=== PATIENT | female | born 1995 | race African-American/Black ===

== ENCOUNTER 2018-06-05 23:58 | Emergency (ER) | payer OTHER ==
--- NOTE | 2018-06-06 00:08 | PDOC ---
History of Present Illness - General Chief Complaint: Pain, Acute Stated Complaint: HAD ONE DRINK,SMOKED HOOKAH,ACTING STRANGE Time Seen by Provider: 06/06/18 00:07 History Source: Patient Exam Limitations: No Limitations - History of Present Illness Initial Comments: 06/06/18 00:10 This is a 22-year-old female brought in by her friends for evaluation. Patient was out at a bar had had some alcohol and smoking when she began to act strangely as per the friend. Here in the emergency room patient was at her baseline and without complaints. Allergies: None Past Medical History: none Social history: Lives with family. No smoking. No alcohol. No illicit drugs. Surgical history: None General: No fevers or chills, no weakness, no weight loss HEENT: No change in vision. No sore throat,. No ear pain CardioVascular: no chest discomfort. No shortness of breath Respiratory:No cough, or wheezing. Gastrointestinal: no nausea, vomiting, diarrhea or constipation, No rectal bleeding Genitourinary: No dysuria, hematuria, or frequency Musculoskeletal: No joint or muscle pain or swelling Neurologic: No headache, vertigo, dizziness or loss of consciousness Psychiatric: nor depression Skin: No rashes or easy bruising Endocrine: no increased thirst or abnormal weight change Allergic: no skin or latex allergy All other systems reviewed and normal Exam: General: Well-nourished well-developed individual, no acute distress HEENT: Throat: Normal, tonsils normal, no erythema or exudate Neck: Supple, no meningeal signs, no lymphadenopathy Eyes::Pupils equal reactive and round, extraocular motion intact Chest: Nontender to palpation Cardiac: S1-S2 normal, regular rate and rhythm, no murmurs rubs or gallops Respiratory: Lungs clear to auscultation bilateral Abdomen: Soft, nondistended, normal bowel sounds, there is no tenderness on palpation diffusely Extremities: Warm, dry, no cyanosis, clubbing, or edema Skin: No rashes Neuro: Alert and oriented x3, CN II - XII intact, nonfocal exam with normal strength, normal sensation, normal reflexes, normal gait, Psych: Normal mood and affect Assessment and plan: This is a 22-year-old female who was brought in by her friends for evaluation because she was acting strangely after smoking or recreational drugs. Child was at her baseline in the emergency room. Patient discharged home Past History - Past Medical History Allergies/Adverse Reactions: Allergies Allergy/AdvReac Type Severity Reaction Status Date / Time No Known Allergies Allergy Verified 06/06/18 00:03 Home Medications: Ambulatory Orders Cariprazine HCl [Vraylar] 1 each PO DAILY 06/06/18 Asthma: Yes - Suicide/Smoking/Psychosocial Hx Smoking History: Never smoked Hx Alcohol Use: No Substance Use Type: None *DC/Admit/Observation/Transfer Diagnosis at time of Disposition: Recreational drug use - Discharge Dispostion Disposition: HOME Condition at time of disposition: Stable Decision to Admit order: No - Referrals - Patient Instructions Additional Instructions: Return to the emergency department immediately with ANY new, persistent or worsening symptoms. Continue any medications as previously prescribed by your physician. You should follow up with your primary doctor as soon as possible regarding today's emergency department visit. . Please make sure your doctor reviews the results of your emergency evaluation. Thank you for coming to the Emergency Department today for your care. It was a pleasure to see you today. Please note that your evaluation is INCOMPLETE until you follow-up with your doctor. - Post Discharge Activity
[2018-06-06 00:11] VITALS: BP 134/82; PULSE 97; TEMP 97.5; BMI 43.8
== END 2018-06-06 00:19 | disposition home or self-care (01) ==
LOC: FER 23:58
DX: F15.90 Other stimulant use, unspecified, uncomplicated (principal)
CPT/HCPCS: 99281-25

== ENCOUNTER 2018-12-17 18:32 | Emergency (ER) | payer OTHER | END 2018-12-17 20:39 | disposition home or self-care (01) | LOC: JER 18:32 → JERFT 20:39 ==

== ENCOUNTER 2019-03-11 16:18 | Emergency (ER) | payer OTHER ==
[2019-03-11 16:29] VITALS: BMI 40.7
--- NOTE | 2019-03-11 16:34 | PDOC ---
Rapid Medical Evaluation Time Seen by Provider: 03/11/19 16:26 Medical Evaluation: Allergies Allergy/AdvReac Type Severity Reaction Status Date / Time No Known Allergies Allergy Verified 06/06/18 00:03 03/11/19 16:26 Pt , 16 weeks , presents for evaluation of vaginal bleeding. States it started about 30 minutes ago and that it was bright red. Admits to some abdominal discomfort. Denies dysuria. Exam: Vaginal exam deferred to provider Orders: Labs, US Pt to proceed to the ER for further evaluation Discharge Disposition - Diagnosis Vaginal bleeding - Referrals - Patient Instructions - Post Discharge Activity
[2019-03-11 17:14] LABS: BASO % 0.2 % (0-2.0); EOS % 0.1 % (0-4.5); HEMATOCRIT 36.6 % (32.4-45.2); LYMPH % 16.6 % (8-40); MCH 27.1 pg (25.7-33.7); MCHC 32.7 g/dl (32.0-36.0); MEAN CELL VOLUME 83.1 fl (80-96); MEAN PLT VOLUME 8.7 fl (7.5-11.1); NEUT % 79.1 % (42.8-82.8); PLATELET COUNT 270 K/MM3 (134-434); RBC 4.41 M/mm3 (3.60-5.2); RDW 16.2 % (11.6-15.6); WHITE BLOOD COUNT 11.8 K/mm3 (4.0-10.0)
[2019-03-11 17:17] LABS: EPI CELLS 3.7 /HPF (0-5/HPF); HYALINE CASTS 7 /lpf (0-8); PH,URINE 6.5 (5.0-8.0); URINE APPEARANCE CLOUDY; URINE BACTERIA 240.9 /hpf (NEGATIVE); URINE BILIRUBIN NEGATIVE (NEGATIVE); URINE COLOR YELLOW; URINE GLUCOSE (UA) NEGATIVE (NEGATIVE); URINE KETONE 1+ (NEGATIVE); URINE LEUK ESTERASE NEGATIVE (NEGATIVE); URINE NITRITE NEGATIVE (NEGATIVE); URINE PROTEIN 1+ (NEGATIVE); URINE RBC 49 /hpf (0-4); URINE UROBILINOGEN 0.2 mg/dL (0.2-1.0); URINE WBC 2 /hpf (0-5)
[2019-03-11 17:50] LABS: ALBUMIN 3.1 g/dl (3.4-5.0); BILIRUBIN,TOTAL 0.4 mg/dL (0.2-1); BLOOD UREA NITROGEN 5.2 mg/dL (7-18); CALCIUM 9.1 mg/dL (8.5-10.1); CREATININE 0.4 mg/dL (0.55-1.3); POTASSIUM 4.1 mmol/L (3.5-5.1); TOT PROT 6.6 g/dl (6.4-8.2)
--- NOTE | 2019-03-11 17:59 | PDOC ---
History of Present Illness - General Chief Complaint: Vaginal Bleeding Stated Complaint: 16 WEEKS/ VAG BLEED Time Seen by Provider: 03/11/19 16:26 History Source: Patient Exam Limitations: No Limitations - History of Present Illness Initial Comments: 03/11/19 17:54 Stephanie Justin is an otherwise healthy 23F at 16 weeks presenting with vaginal bleeding 1 hour BEEF CATTLE GRAZIER. Patient reports she and father of her baby were having intercourse when she noticed a large amount of blood from her vagina, enough to saturate a pad. This has never happened before. Patient denies any new abdominal or back pain, nausea , vomiting, chest pain, SOB, weakness, dizziness. Has had lower back pain since , as well as a mild subcostal pain. No other medical issues, no medications taken. has been uneventful. Has OBGYN f/u, cannot remember name but gets US here. Past History - Past Medical History Allergies/Adverse Reactions: Allergies Allergy/AdvReac Type Severity Reaction Status Date / Time No Known Allergies Allergy Verified 03/11/19 16:29 Home Medications: Ambulatory Orders Cariprazine HCl [Vraylar] 1 each PO DAILY 06/06/18 No122/Iron/Folic Acid [ Multi Tablet] 1 each PO DAILY #30 tablet 12/17/18 Asthma: Yes COPD: No Psychiatric Problems: Yes (DEPRESSION) - Psycho Social/Smoking Cessation Hx Smoking History: Never smoked Have you smoked in the past 12 months: No Information on smoking cessation initiated: No 'Breaking Loose' booklet given: 06/06/18 Hx Alcohol Use: No Drug/Substance Use Hx: No Substance Use Type: None Review of Systems - Review of Systems Able to Perform ROS?: Yes Constitutional: No: Symptoms Reported HEENTM: No: Symptoms Reported Respiratory: No: Symptoms reported Cardiac (ROS): No: Symptoms Reported ABD/GI: Yes: Constipated, Abdominal cramping. No: Diarrhea, Nausea, Vomiting : No: Symptoms Reported Musculoskeletal: Yes: Back Pain Integumentary: No: Symptoms Reported Neurological: No: Symptoms reported Endocrine: No: Symptoms Reported Hematologic/Lymphatic: No: Symptoms Reported All Other Systems: Reviewed and Negative *Physical Exam - Vital Signs Last Vital Signs Temp Pulse Resp BP Pulse Ox 36.8 F L 79 20 126/66 99 03/11/19 16:26 03/11/19 16:26 03/11/19 16:26 03/11/19 16:26 03/11/19 16:26 - Physical Exam General Appearance: Yes: Nourished, Appropriately Dressed, Obese. No: Apparent Distress HEENT: positive: EOMI, GADIEL, Normal ENT Inspection, Normal Voice, Symmetrical, Pharynx Normal. negative: Scleral Icterus (R), Scleral Icterus (L), Pharyngeal Erythema, Tonsillar Exudate, Tonsillar Erythema Neck: positive: Trachea midline, Supple. negative: Tender, Rigid, Lymphadenopathy (R), Lymphadenopathy (L) Respiratory/Chest: positive: Lungs Clear, Normal Breath Sounds. negative: Chest Tender, Respiratory Distress, Accessory Muscle Use, Labored Respiration, Crackles, Rales, Rhonchi, Stridor, Wheezing Cardiovascular: positive: Regular Rhythm, Regular Rate. negative: Murmur Female Pelvic Exam: positive: normal external exam, cervical os closed, normal adnexa, other (no notable bleeding or clots, mild serosang discharge, os closed , non-tender). negative: CMT, lesions, vaginal bleeding Gastrointestinal/Abdominal: positive: Normal Bowel Sounds, Tender (subcostal tenderness bilaterally), Flat, Soft, Protuberent. negative: Organomegaly, Pulsatile Mass, Guarding, Rebound, Hernia Musculoskeletal: positive: Normal Inspection. negative: CVA Tenderness, Vertebral Tenderness Extremity: positive: Normal Capillary Refill, Normal Inspection, Normal Range of Motion, Pelvis Stable. negative: Tender Integumentary: positive: Normal Color, Dry, Warm Neurologic: positive: Fully Oriented, Alert, Normal Mood/Affect, Normal Response ED Treatment Course - LABORATORY CBC & Chemistry Diagram: 03/11/19 16:46 03/11/19 16:46 - ADDITIONAL ORDERS Additional order review: Laboratory Results 03/11/19 03/11/19 16:46 16:46 Sodium 138 Potassium 4.1 Chloride 104 Carbon Dioxide 25 Anion Gap 9 BUN 5.2 L Creatinine 0.4 L Est GFR (CKD-EPI)AfAm 170.15 Est GFR (CKD-EPI)NonAf 146.81 Random Glucose 74 Calcium 9.1 Total Bilirubin 0.4 AST 8 L ALT 19 Alkaline Phosphatase 70 Total Protein 6.6 Albumin 3.1 L Urine Color Yellow Urine Appearance Cloudy Urine pH 6.5 Ur Specific [place] 1.020 Urine Protein 1+ H Urine Glucose (UA) Negative Urine Ketones 1+ H Urine Blood 3+ H Urine Nitrite Negative Urine Bilirubin Negative Urine Urobilinogen 0.2 Ur Leukocyte Esterase Negative Urine WBC (Auto) 2 Urine RBC (Auto) 49 Urine Casts (Auto) 7 U Epithel Cells (Auto) 3.7 Urine Bacteria (Auto) 240.9 03/11/19 16:46 RBC 4.41 MCV 83.1 MCHC 32.7 RDW 16.2 H MPV 8.7 D Neutrophils % 79.1 Lymphocytes % 16.6 Monocytes % 4.0 Eosinophils % 0.1 Basophils % 0.2 Medical Decision Making - Medical Decision Making 03/11/19 17:54 Stephanie Justin is an otherwise healthy 23F at 16 weeks presenting with vaginal bleeding 1 hour BEEF CATTLE GRAZIER. Patient presentation is concerning for placental abruption vs. cervical injury during coitus vs. STD vs. UTI. Pelvic exam unremarkable, no active bleeding, abdominal pain unconcerning for acute pathology or intrabdominal bleeding. CBC CMP Beta quant UA/UC transabdominal US T/S 03/11/19 18:56 US shows live 16 week , HR 136, normal appearing. Labs remarkable for: - WBC 11.8, asymptomatic - UA +protein, +blood, +ketones, no evidence of UTI Patient evaluation shows no evidence of acute bleeding or OBGYN pathology requiring immediate intervention. Stable for discharge home with OBGYN f/u. Discharge - Discharge Information Problems reviewed: Yes Clinical Impression/Diagnosis: Vaginal bleeding Condition: Stable Disposition: HOME - Follow up/Referral Referrals: Danny Acosta [Primary Care Provider] - - Patient Discharge Instructions Patient Printed Discharge Instructions: DI for Vaginal Bleeding During Additional Instructions: Today you were evaluated for vaginal bleeding during . We have examined you and did not find any bleeding. Your labs do not show evidence of infection or anemia, your urine does not show evidence of infection. Your ultrasound is normal. Your bleeding is likely due to a minor injury that has since healed. Please return to the emergency room if you experience worse bleeding, abdominal pain, fever, weakness, or have any other new or concerning symptoms. Please follow-up with your primary doctor in the next 3 days, and your OBGYN for further care. - Post Discharge Activity
--- NOTE | 2019-03-11 18:09 | PDOC ---
Documentation entered by Charlette Vaughan SCRIBE, acting as scribe for Whitney Colvin MD. Whitney Colvin MD: This documentation has been prepared by the Alexus degroot Nirvannie, SCRIBE, under my direction and personally reviewed by me in its entirety. I confirm that the documentation accurately reflects all work, treatment, procedures, and medical decision making performed by me. Attending Attestation - Resident Resident Name: Sunday Aceves - ED Attending Attestation I have performed the following: I have examined & evaluated the patient, The case was reviewed & discussed with the resident, I agree w/resident's findings & plan - HPI HPI: 03/11/19 18:06 The patient is a 23 year old 16 weeks female , with no significant past medical history, who presents to the emergency department with, vaginal bleeding and abdominal discomfort. As per patient, she was having sexual intercourse with her partner and afterwards she noticed bright red vaginal bleeding. She denies recent dysuria, frequency, or urgency. She denies recent chest pain or shortness of breath. Allergies: NKDA - Physicial Exam PE: 03/11/19 18:[address] Aceves's physical exam - Medical Decision Making 03/11/19 18:08 23-year-old female experienced some scant vaginal bleeding after having intercourse with her partner and came to the emergency department She states she is about 16 weeks Os is closed on exam, no significant vaginal bleeding, plan AMBULANCE PAR[facility]EDIC ultrasound and then discharge home 03/11/19 18:11 UA no infection cbc - no anemia 03/11/19 19:08 Pelvic ultrasound :shows a single live intrauterine of 16 weeks with heart tones of 137 and adequate amniotic fluid plan continue care w hematology supervisor
[2019-03-12 02:33] VITALS: BP 126/71; PULSE 80; TEMP 98.3
== END 2019-03-11 19:30 | disposition home or self-care (01) ==
LOC: JER 16:18
DX: O26.892 Other specified pregnancy related conditions, second trimester (principal); O20.8 Other hemorrhage in early pregnancy; N93.0 Postcoital and contact bleeding; Z3A.16 16 weeks gestation of pregnancy
CPT/HCPCS: 36415; 76801-TC; 80053; 81003; 84702; 85025; 86850; 86900; 86901; 87086; 99283-25

== ENCOUNTER 2019-10-05 21:41 | Emergency (ER) | payer OTHER ==
[2019-10-05] MEDS ORDERED: LIDOCAINE PATCH REMOVAL MC SCH (22:00)
[2019-10-05 22:03] VITALS: TEMP 98.6; BMI 43.5
--- NOTE | 2019-10-05 22:30 | PDOC ---
History of Present Illness <Carmencita Heredia - Last Filed: 10/06/19 01:10> - History of Present Illness Initial Comments: 23 yo female with no significant PMH presents with 1 day hx of upper back pain. She describes the pain as a constant pulsation that is non-positional in the mid thoracic spine. She has taken ibuprophen with moderate relief. She endorses nausea and nonbilious nonblood vomiting (6x). She endorses diffuse abdominal pain. She denies fever, chills, constipation, chest pain, sob. She recently gave via approximately 1 month ago. <DonygenaSusan - Last Filed: 10/06/19 03:16> - General Chief Complaint: Pain Stated Complaint: VOMITTING & BACK PAIN Past History <Carmencita Heredia - Last Filed: 10/06/19 01:10> - Medical History Asthma: Yes ( A CHILD, LAST ATTACK UNKNOWN) Cancer: No Cardiac Disorders: No COPD: No Diabetes: No HTN: No Psychiatric Problems: Yes (DEPRESSION) Seizures: No Thyroid Disease: No - Psycho-Social/Smoking History Smoking History: Never smoked Have you smoked in the past 12 months: No 'Breaking Loose' booklet given: 06/06/18 - Substance Abuse Hx (Audit-C & DAST Scrn) How often the patient has a drink containing alcohol: Never Score: In Men: 4 or > Positive; In Women: 3 or > Positive: 0 Screen Result (Pos requires Nsg. Audit-10AR): Negative In the last yr the pt used illegal drug/Rx for NonMed reason: No Score: Yes response is considered Positive: 0 Screen Result (Positive result requires Nsg. DAST-10): Negative <Susan Terry - Last Filed: 10/06/19 03:16> - Medical History Allergies/Adverse Reactions: Allergies Allergy/AdvReac Type Severity Reaction Status Date / Time No Known Allergies Allergy Verified 09/11/19 20:05 Home Medications: Ambulatory Orders No122/Iron/Folic Acid [ Multi Tablet] 1 each PO DAILY #30 tablet 12/17/18 Ferrous Sulfate [Feosol] 325 mg PO DAILY 09/03/19 Folic Acid 1 mg PO DAILY 09/03/19 Ibuprofen [Motrin -] 600 mg PO TID #90 tablet 09/05/19 Breast Pump 1 each MC 5XD 30 Days #1 each 09/06/19 Oxycodone HCl/Acetaminophen [Percocet 5-325 mg Tablet -] 1 - 2 tab PO Q6H PRN #20 tab MDD 4 09/06/19 Amoxicillin - [Amoxicillin 500mg Capsule -] 500 mg PO TID #21 capsule 09/11/19 Cephalexin [Keflex] 500 mg PO BID #14 capsule 10/06/19 Review of Systems - Review of Systems Constitutional: No: Chills, Diaphoresis, Fever, Loss of Appetite HEENTM: No: Blurred Vision, Recent change in vision, Double Vision Respiratory: No: Cough, Orthopnea, Shortness of Breath Cardiac (ROS): No: Chest Pain, Irregular Heart Rate, Lightheadedness, Palpitations, Chest Tightness ABD/GI: Yes: Poor Appetite, Vomiting, Abdominal cramping. No: Diarrhea Musculoskeletal: Yes: Back Pain. No: Joint Pain, Muscle Weakness Neurological: Yes: Headache, Dizziness. No: Numbness Psychiatric: No: Anxiety, Depression, Mood Swings Endocrine: No: Flushing, Intolerance to Cold, Intolerance to Heat <Zeftawi,Bilal - Last Filed: 10/06/19 03:16> *Physical Exam - Vital Signs Last Vital Signs Temp Pulse Resp BP Pulse Ox 98.6 F 71 19 124/66 98 10/05/19 21:59 10/05/19 21:59 10/05/19 21:59 10/05/19 21:59 10/05/19 21:59 <Carmencita Heredia - Last Filed: 10/06/19 01:10> - Vital Signs Last Vital Signs Temp Pulse Resp BP Pulse Ox 98.6 F 71 19 124/66 98 10/05/19 21:59 10/05/19 21:59 10/05/19 21:59 10/05/19 21:59 10/05/19 21:59 - Physical Exam General Appearance: Yes: Appropriately Dressed. No: Apparent Distress, Disheveled HEENT: positive: Normal Voice Respiratory/Chest: positive: Lungs Clear, Normal Breath Sounds. negative: Respiratory Distress Cardiovascular: positive: Regular Rhythm, Regular Rate, S1, S2 Gastrointestinal/Abdominal: positive: Normal Bowel Sounds, Flat, Soft. negativ e: Tender Musculoskeletal: positive: Normal Inspection Extremity: positive: Normal Inspection, Normal Range of Motion Integumentary: positive: Normal Color, Dry, Warm Neurologic: positive: Fully Oriented, Alert, Normal Mood/Affect, Normal Response <Susan Terry - Last Filed: 10/06/19 03:16> ED Treatment Course - LABORATORY CBC & Chemistry Diagram: 10/05/19 23:35 10/05/19 23:35 - ADDITIONAL ORDERS Additional order review: Laboratory Results 10/05/19 10/05/19 10/05/19 23:35 23:35 23:35 Sodium 139 Potassium 3.9 Chloride 103 Carbon Dioxide 30 Anion Gap 5 L BUN 8.5 Creatinine 0.6 Est GFR (CKD-EPI)AfAm 148.90 Est GFR (CKD-EPI)NonAf 128.48 Random Glucose 100 Calcium 9.1 Total Bilirubin 5.4 H AST 354 H ALT 428 H Alkaline Phosphatase 280 H Total Protein 7.8 Albumin 3.6 Lipase 108 Urine Color Dk yellow Urine Appearance Cloudy Urine pH 8.0 D Ur Specific [place] 1.031 Urine Protein 2+ H Urine Glucose (UA) Negative Urine Ketones Negative Urine Blood 3+ H Urine Nitrite Positive H Urine Bilirubin 3+ H Urine Urobilinogen 1.0 Ur Leukocyte Esterase 1+ H Urine HCG, Qual Negative 10/05/19 23:35 RBC 4.29 MCV 80.7 MCHC 33.0 RDW 16.2 H MPV 7.8 - Medications Given in the ED: ED Medications Discontinued Medications Generic Name Dose Route Start Last Admin Trade Name Freq PRN Reason Stop Dose Admin Famotidine/Sodium Chloride 20 mg in 50 mls @ 100 mls/hr 10/05/19 23:26 10/05/19 23:39 Pepcid 20 Mg Premixed Ivpb - IVPB 10/05/19 23:55 100 mls/hr ONCE ONE Administration Ceftriaxone Sodium 1 gm/ 50 mls @ 100 mls/hr 10/05/19 23:52 10/06/19 00:03 Dextrose IVPB 10/06/19 00:21 100 mls/hr ONCE ONE Administration Ketorolac Tromethamine 30 mg 10/05/19 23:26 10/05/19 23:39 Toradol Injection - IVPUSH 10/05/19 23:27 30 mg ONCE ONE Administration Lidocaine 1 patch 10/05/19 23:35 10/06/19 00:03 Lidoderm Patch - TP 10/05/19 23:36 1 patch ONCE ONE Administration Ondansetron HCl 4 mg 10/05/19 23:26 10/05/19 23:40 Zofran Injection IVPUSH 10/05/19 23:27 4 mg ONCE ONE Administration Sodium Chloride 1,000 ml 10/05/19 23:10 10/05/19 23:34 Normal Saline - IV 10/05/19 23:11 1,000 ml ONCE ONE Administration <Carmencita Heredia - Last Filed: 10/06/19 01:10> - LABORATORY CBC & Chemistry Diagram: 10/05/19 23:35 10/05/19 23:35 <Susan Terry - Last Filed: 10/06/19 03:16> Medical Decision Making - Medical Decision Making 23 yo female with no significant PMH presents with back pain, nausea, vomiting for 1 day. UA is positive for LE and Nitrates indicating UTI. She recently gave 1 month ago. Pt is treated with famotidine, zofran, and toradol. Pt is discharged with cephalexin for treatment of UTI. <Susan Terry - Last Filed: 10/06/19 03:16> Discharge - Discharge Information Problems reviewed: Yes - Admission No <Carmencita Heredia - Last Filed: 10/06/19 01:10> - Discharge Information Problems reviewed: Yes - Admission No <Susan Terry - Last Filed: 10/06/19 03:16> - Discharge Information Clinical Impression/Diagnosis: UTI (urinary tract infection), Back strain Condition: Improved Disposition: HOME - Additional Discharge Information Prescriptions: Cephalexin [Keflex] 500 mg PO BID #14 capsule - Patient Discharge Instructions Patient Printed Discharge Instructions: Urinary Tract Infection Additional Instructions: Take antibiotics as prescribed. Follow up with PCP for monitoring. Return to ED if condition worsens.
[2019-10-05] MEDS ORDERED: SODIUM CHLORIDE 0.9% 500 ML INFUS.BAG IV ONE (23:10)
[2019-10-05] MEDS ORDERED: KETOROLAC TROMETHAMINE 30 MG/1 ML VIAL IVPUSH ONE (23:26)
[2019-10-05] MEDS ORDERED: FAMOTIDINE 20 MG/50 ML IVPB 20 MG/50 ML MG IVPB ONE ×2 (23:26→23:36)
[2019-10-05] MEDS ORDERED: ONDANSETRON 4 MG/2 ML VIAL IVPUSH ONE (23:26)
[2019-10-05] MEDS ORDERED: LIDOCAINE 5% TOPICAL PATCH TP ONE (23:35)
[2019-10-05] MEDS ORDERED: KETOROLAC TROMETHAMINE 30 MG/1 ML VIAL ONE (23:35)
[2019-10-05 23:43] LABS: HEMATOCRIT 34.6 % (32.4-45.2); HEMOGLOBIN 11.4 GM/dL (10.7-15.3); MCH 26.6 pg (25.7-33.7); MEAN CELL VOLUME 80.7 fl (80-96); MEAN PLT VOLUME 7.8 fl (7.5-11.1); PLATELET COUNT 333 K/MM3 (134-434); RBC 4.29 M/mm3 (3.60-5.2); RDW 16.2 % (11.6-15.6); WHITE BLOOD COUNT 8.8 K/mm3 (4.0-10.0)
[2019-10-05] MEDS ORDERED: LIDOCAINE 5% TOPICAL PATCH ONE (23:45)
[2019-10-05 23:48] LABS: URINE APPEARANCE CLOUDY; URINE BILIRUBIN 3+ (NEGATIVE); URINE COLOR DK YELLOW; URINE GLUCOSE (UA) NEGATIVE (NEGATIVE); URINE KETONE NEGATIVE (NEGATIVE); URINE LEUK ESTERASE 1+ (NEGATIVE); URINE NITRITE POSITIVE (NEGATIVE); URINE PROTEIN 2+ (NEGATIVE)
[2019-10-05] MEDS ORDERED: CEFTRIAXONE 1 GM in DEXTROSE 5%-WATER - 50 ML IVPB ONE (23:52)
[2019-10-05] MEDS ORDERED: cefTRIAXone SODIUM 1 GM VIAL ONE (23:55)
--- NOTE | 2019-10-06 00:01 | PDOC ---
Documentation entered by Charlette Vaughan SCRIBE, acting as scribe for Carmencita Heredia MD. Carmencita Heredia MD: This documentation has been prepared by the Alexus degroot Nirvannie, SCRIBE, under my direction and personally reviewed by me in its entirety. I confirm that the documentation accurately reflects all work, treatment, procedures, and medical decision making performed by me. Attending Attestation - Resident Resident Name: Susan Terry - ED Attending Attestation I have performed the following: I have examined & evaluated the patient, The case was reviewed & discussed with the resident, I agree w/resident's findings & plan, Exceptions are as noted - HPI HPI: 10/05/19 23:15 The patient is a 23 year old female with a significant past medical history of childhood asthma, obesity, depression who presents to the ED with 1 week of midback pain worsened while supine with associated 2 days of emesis. Patient notes inability to tolerate PO intake for the past two days yesterday 4 episodes and today 3 episodes (pinkish/clear in coloration). She notes having pineapple 3 days ago and believes it onset her nausea/vomiting. Patient recently gave via 09/04/2019. She denies breast feeding. She denies any sexual activity since her . She denies any edema or chest pain. Allergies: NKDA Familial Hx: Diabetes (No hx of dm or gestational dm). - Physicial Exam PE: 10/05/19 23:25 GENERAL: Awake, alert, and fully oriented, in no acute distress HEAD: No signs of trauma NECK: Normal ROM, supple, no lymphadenopathy, JVD, or masses LUNGS: Breath sounds equal, clear to auscultation bilaterally. No wheezes, and no crackles HEART: Regular rate and rhythm, normal S1 and S2, no murmurs, rubs or gallops ABDOMEN: Soft, nontender, normoactive bowel sounds. No guarding, no rebound. No masses BACK: Paraspinal musculoskeletal tenderness and spasming to T4-10. While recubant pain is exacerbated and patient is unable to lay straight. EXTREMITIES: Normal range of motion, no edema. No clubbing or cyanosis. No cords, erythema, or tenderness NEUROLOGICAL: Cranial nerves II through XII grossly intact. Normal speech SKIN: Warm, Dry, normal turgor, no rashes or lesions noted. - Medical Decision Making 10/05/19 23:34 Pt will be treated with NSS and toradol and lidoderm patch. Discharge - Discharge Information Problems reviewed: Yes Clinical Impression/Diagnosis: UTI (urinary tract infection), Back strain Condition: Improved Disposition: HOME - Additional Discharge Information Prescriptions: Cephalexin [Keflex] 500 mg PO BID #14 capsule - Follow up/Referral - Patient Discharge Instructions Patient Printed Discharge Instructions: Urinary Tract Infection Additional Instructions: Take antibiotics as prescribed. Follow up with PCP for monitoring. Return to ED if condition worsens. - Post Discharge Activity
[2019-10-06 00:37] LABS: ALBUMIN 3.6 g/dl (3.4-5.0); BILIRUBIN,TOTAL 5.4 mg/dL (0.2-1); BLOOD UREA NITROGEN 8.5 mg/dL (7-18); CALCIUM 9.1 mg/dL (8.5-10.1); CREATININE 0.6 mg/dL (0.55-1.3); POTASSIUM 3.9 mmol/L (3.5-5.1); TOT PROT 7.8 g/dl (6.4-8.2)
[2019-10-06 01:20] VITALS: BP 128/72; PULSE 78
--- NOTE | 2019-10-06 14:03 | EKG ---
Test Reason : Blood Pressure : / mmHG Vent. Rate : 065 BPM Atrial Rate : 065 BPM P-R Int : 150 ms QRS Dur : 080 ms QT Int : 414 ms P-R-T Axes : 012 034 015 degrees QTc Int : 430 ms NORMAL SINUS RHYTHM NORMAL ECG NO PREVIOUS ECGS AVAILABLE Confirmed by LONNIE FELIZ MD ([id number]) on 10/06/2019 2:02:46 PM Referred By: Confirmed By:LONNIE FELIZ MD
== END 2019-10-06 01:20 | disposition home or self-care (01) ==
LOC: JER 21:41
PROC: 3E033GC Introduction of Other Therapeutic Substance into Peripheral Vein, Percutaneous Approach (ICD-10-PCS; principal; 2019-10-05)
DX: N39.0 Urinary tract infection, site not specified (principal); S29.012A Strain of muscle and tendon of back wall of thorax, initial encounter; Y99.9 Unspecified external cause status
CPT/HCPCS: 36415; 71046-TC-FY; 80053; 81003; 83690; 84703; 85027; 93005; 93010; 99285-25

== ENCOUNTER 2019-11-18 12:37 | Emergency (ER) | payer OTHER ==
--- NOTE | 2019-11-18 12:58 | TELE ---
HPI Do you have fever,cough or shortness of breath?: Yes - General Reason For Visit: COVID19 TESTING History Source: Patient Past History - Travel History Traveled outside of the country in the last 30 days: No Close contact w/someone who was outside of country & ill: No - Medical History Allergies/Adverse Reactions: Allergies Allergy/AdvReac Type Severity Reaction Status Date / Time No Known Allergies Allergy Verified 09/11/19 20:05 Home Medications: Ambulatory Orders No122/Iron/Folic Acid [ Multi Tablet] 1 each PO DAILY #30 tablet 12/17/18 Ferrous Sulfate [Feosol] 325 mg PO DAILY 09/03/19 Folic Acid 1 mg PO DAILY 09/03/19 Ibuprofen [Motrin -] 600 mg PO TID #90 tablet 09/05/19 Breast Pump 1 each MC 5XD 30 Days #1 each 09/06/19 Oxycodone HCl/Acetaminophen [Percocet 5-325 mg Tablet -] 1 - 2 tab PO Q6H PRN #20 tab MDD 4 09/06/19 Amoxicillin - [Amoxicillin 500mg Capsule -] 500 mg PO TID #21 capsule 09/11/19 Cephalexin [Keflex] 500 mg PO BID #14 capsule 10/06/19 Asthma: Yes ( A CHILD, LAST ATTACK UNKNOWN) Cancer: No Cardiac Disorders: No COPD: No Diabetes: No HTN: No Psychiatric Problems: Yes (DEPRESSION) Seizures: No Thyroid Disease: No - Psycho-Social/Smoking History Smoking History: Never smoked Have you smoked in the past 12 months: No 'Breaking Loose' booklet given: 06/06/18 Review of Systems - Review of Systems Constitutional: No: Chills, Fever Respiratory: No: Cough *Physical Exam - Physical Exam Respiratory/Chest: negative: Respiratory Distress - Medical Decision Making 11/18/19 12:56 + a few weeks ago now needs repeat test Discharge Diagnosis at time of Disposition: Encounter by telehealth for suspected COVID-19 - Referrals Follow-up Referral(s): Danny Acosta [Primary Care Provider] - - Patient Instructions
== END 2019-11-18 12:59 | disposition home or self-care (01) ==
LOC: JVIRT 12:37
DX: U07.1 COVID-19 (principal)
CPT/HCPCS: 36415; 86769; Q3014-GT; U0003

== ENCOUNTER 2021-09-10 11:08 | Day surgery (SDC) | payer OTHER ==
[2021-09-10] MEDS ORDERED: FERRIC CARBOXYMALTOSE 750 MG in SODIUM CHLORIDE 250 ML IVPB ONE (12:00)
[2021-09-10 13:50] VITALS: BP 124/62; PULSE 65; TEMP 98.6
== END 2021-09-10 13:30 | disposition home or self-care (01) ==
LOC: FINFUSION 11:08 → FM/S 11:11 → FINFUSION 13:30
PROVIDERS: ATTEND Family Medicine
PROC: 3E033GC Introduction of Other Therapeutic Substance into Peripheral Vein, Percutaneous Approach (ICD-10-PCS; principal; 2021-09-10)
DX: D50.9 Iron deficiency anemia, unspecified (principal)
CPT/HCPCS: 81025; 96365; J1439

== ENCOUNTER 2021-09-17 12:49 | Day surgery (SDC) | payer OTHER ==
[2021-09-17] MEDS ORDERED: FERRIC CARBOXYMALTOSE 750 MG in SODIUM CHLORIDE 250 ML IVPB ONE (13:15)
[2021-09-17 13:23] VITALS: TEMP 98
[2021-09-17 13:56] VITALS: BP 104/64; PULSE 63
== END 2021-09-17 14:00 | disposition home or self-care (01) ==
LOC: FINFUSION 12:49 → FM/S 12:50 → FINFUSION 14:00
PROVIDERS: ATTEND Family Medicine
PROC: 3E033GC Introduction of Other Therapeutic Substance into Peripheral Vein, Percutaneous Approach (ICD-10-PCS; principal; 2021-09-17)
DX: D50.9 Iron deficiency anemia, unspecified (principal)
CPT/HCPCS: 96365; J1439

== ENCOUNTER 2023-03-02 23:09 | Inpatient (IN) | payer OTHER ==
[2023-03-02] MEDS ORDERED: DALBAVANCIN HCL 1,500 MG in DEXTROSE 5%-WATER - 500 ML IVPB ONE (23:34)
[2023-03-02] MEDS ORDERED: CLINDAMYCIN 600MG PREMIX IVPB 600 MG/50 ML BAG IVPB ONE (23:42)
[2023-03-02] MEDS ORDERED: PIPERACILLIN/TAZOB 3.375 GM 3.375 GM in DEXTROSE 5%-WATER - 50 ML IVPB ONE (23:42)
[2023-03-03] MEDS ORDERED: PIPERACILLIN/TAZOBACTAM 3.375 GM VIAL IVPB ONE ×2 (00:34→17:55)
[2023-03-03] MEDS ORDERED: DALBAVANCIN HCL 500 MG VIAL (RESTRICTED TO ID ONLY) IVPB ONE ×2 (00:34)
[2023-03-03] MEDS ORDERED: CLINDAMYCIN 600MG PREMIX IVPB 600 MG/50 ML BAG IVPB ONE (00:34)
[2023-03-03 02:05] LABS: BASO % 0.3 % (0-2.0); EOS % 0.4 % (0-4.5); HEMATOCRIT 31.9 % (32.4-45.2); HEMOGLOBIN 10.6 GM/dL (10.7-15.3); LYMPH % 15.7 % (8-40); MCHC 33.2 g/dl (32.0-36.0); MEAN CELL VOLUME 75.3 fl (80-96); MEAN PLT VOLUME 7.9 fl (7.5-11.1); NEUT % 77.6 % (42.8-82.8); PLATELET COUNT 392 10^3/uL (134-434); RBC 4.23 M/mm3 (3.60-5.2); RDW 15.5 % (11.6-15.6); WHITE BLOOD COUNT 12.3 K/mm3 (4.0-10.0)
[2023-03-03 02:10] LABS: POTASSIUM 4.1 mmol/L (3.5-5.1)
[2023-03-03 02:11] LABS: INR 1.2 (0.83-1.09); PROTHROMBIN TIME (PATIENT) 13.9 SEC (9.7-13.0)
[2023-03-03 02:12] LABS: BLOOD UREA NITROGEN 10.3 mg/dL (7-18); CALCIUM 8.2 mg/dL (8.5-10.1)
[2023-03-03 02:15] LABS: CREATININE 0.6 mg/dL (0.55-1.3)
[2023-03-03 02:17] LABS: BILIRUBIN,TOTAL 0.3 mg/dL (0.2-1); TOT PROT 7.2 g/dl (6.4-8.2)
[2023-03-03] MEDS ORDERED: ACETAMINOPHEN 325 MG TABLET (FP) PO PRN (03:48)
[2023-03-03] MEDS ORDERED: DOCUSATE SODIUM 100 MG CAPSULE (FP) PO PRN ×2 (03:48→17:46)
[2023-03-03] MEDS ORDERED: ACETAMINOPHEN 1000 MG/100 ML BAG IVPB PRN ×3 (03:51→17:46)
[2023-03-03 03:58] LABS: ERYTHROCYTE SEDIMENTATION RATE 38 mm/hr (0-20)
[2023-03-03 05:16] VITALS: BMI 44.5
[2023-03-03] MEDS ORDERED: morphine SULFATE 4 MG/ML VIAL IVPUSH PRN ×2 (09:11→17:46)
[2023-03-03 10:31] LABS: BASO % 0.4 % (0-2.0); EOS % 0.4 % (0-4.5); HEMATOCRIT 30.1 % (32.4-45.2); HEMOGLOBIN 9.8 GM/dL (10.7-15.3); LYMPH % 16.5 % (8-40); MCH 24.9 pg (25.7-33.7); MCHC 32.6 g/dl (32.0-36.0); MEAN CELL VOLUME 76.3 fl (80-96); MEAN PLT VOLUME 7.6 fl (7.5-11.1); MONO % 6.4 % (3.8-10.2); NEUT % 76.3 % (42.8-82.8); PLATELET COUNT 360 10^3/uL (134-434); RBC 3.95 M/mm3 (3.60-5.2); RDW 15.3 % (11.6-15.6); WHITE BLOOD COUNT 11.5 K/mm3 (4.0-10.0)
[2023-03-03] MEDS ORDERED: HEPARIN NA (PORCINE) 5,000 UNITS/ML 1ML VIAL SQ SCH (14:00)
[2023-03-03] MEDS ORDERED: ONDANSETRON 4 MG/2 ML VIAL IVPUSH PRN ×2 (15:37→17:46)
[2023-03-03] MEDS ORDERED: ACETAMINOPHEN INJECTION 100 ML IVPB ONE (15:53)
[2023-03-03] MEDS ORDERED: MIDAZOLAM HCL 2 MG/2 ML SINGLE DOSE VIAL ONE (15:53)
[2023-03-03] MEDS ORDERED: PROPOFOL 20 ML ONE ×2 (15:57→16:49)
[2023-03-03] MEDS ORDERED: HYDROmorphone HCL/PF 1 MG/ML VIAL ONE (17:01)
[2023-03-03] MEDS ORDERED: oxyCODONE HCL 5 MG TABLET PO PRN ×3 (17:36→17:46)
[2023-03-03] MEDS ORDERED: LACTATED RINGERS SOLUTION 1,000 ML IV SCH ×2 (17:45→17:46)
[2023-03-03] MEDS ORDERED: ONDANSETRON 4 MG/2 ML VIAL ONE (17:51)
[2023-03-03] MEDS: PIPERACILLIN/TAZOB 3.375 GM 3.375 GM in DEXTROSE 5%-WATER - 50 ML IVPB SCH (17:56)
[2023-03-03] MEDS ORDERED: PIPERACILLIN/TAZOB 3.375 GM 3.375 GM in DEXTROSE 5%-WATER - 50 ML IVPB SCH (18:00)
[2023-03-03] MEDS: CLINDAMYCIN 900 MG PREMIX IVPB 900 MG/50 ML BAG IVPB SCH (18:34)
[2023-03-03] MEDS: HEPARIN NA (PORCINE) 5,000 UNITS/ML 1ML VIAL SQ SCH (21:23)
[2023-03-03] MEDS: oxyCODONE HCL 5 MG TABLET PO PRN (23:55)
[2023-03-04] MEDS: CLINDAMYCIN 900 MG PREMIX IVPB 900 MG/50 ML BAG IVPB SCH ×2 (01:52→09:47)
[2023-03-04] MEDS: PIPERACILLIN/TAZOB 3.375 GM 3.375 GM in DEXTROSE 5%-WATER - 50 ML IVPB SCH ×3 (03:13→18:09)
[2023-03-04] MEDS ORDERED: ACETAMINOPHEN 325 MG TABLET (FP) PO PRN (03:48)
[2023-03-04] MEDS: HEPARIN NA (PORCINE) 5,000 UNITS/ML 1ML VIAL SQ SCH ×3 (06:50→21:31)
[2023-03-04] MEDS: oxyCODONE HCL 5 MG TABLET PO PRN ×3 (06:50→21:32)
[2023-03-04 09:09] LABS: CALCIUM 8.5 mg/dl (8.5-10.1); CREATININE 0.5 mg/dl (0.6-1.3); MAGNESIUM 2.1 mg/dL (1.8-2.4); PHOSPHOROUS 3.5 (2.5-4.9); POTASSIUM 4.2 mmol/L (3.5-5.1)
[2023-03-04] MEDS ORDERED: VANCOMYCIN 1,000 MG in DEXTROSE 5%-WATER - 250 ML IVPB SCH (10:30)
[2023-03-04] MEDS: VANCOMYCIN/WATER 1250 MG 1,250 MG/250 ML BAG IVPB SCH ×2 (11:19→21:36)
[2023-03-04] MEDS: ACETAMINOPHEN 325 MG TABLET (FP) PO PRN ×2 (11:20→21:33)
[2023-03-04] MEDS: LACTOBACILLUS ACIDOPHILUS 1 TABLET PO SCH (11:20)
[2023-03-05] MEDS: PIPERACILLIN/TAZOB 3.375 GM 3.375 GM in DEXTROSE 5%-WATER - 50 ML IVPB SCH ×3 (03:07→17:55)
[2023-03-05] MEDS: HEPARIN NA (PORCINE) 5,000 UNITS/ML 1ML VIAL SQ SCH ×3 (06:57→21:15)
[2023-03-05 08:25] LABS: ALBUMIN 3.1 g/dl (3.4-5.0); BILIRUBIN,TOTAL 0.3 mg/dl (0.2-1); CALCIUM 8.1 mg/dl (8.5-10.1); CREATININE 0.6 mg/dl (0.6-1.3); POTASSIUM 4.4 mmol/L (3.5-5.1); TOT PROT 5.6 g/dl (6.4-8.2)
[2023-03-05 08:33] LABS: HEMATOCRIT 26.5 % (32.4-45.2); HEMOGLOBIN 8.6 G/dL (10.7-15.3); MCH 25.3 pg (25.7-33.7); MCHC 32.5 g/dl (32.0-36.0); MEAN CELL VOLUME 77.9 fl (80-96); MEAN PLT VOLUME 8.5 fl (7.5-11.1); PLATELET COUNT 330.3 10^3/uL (134-434); RDW 16.1 % (11.6-15.6); WHITE BLOOD COUNT 8.1 10^3/uL (4.0-10.8)
[2023-03-05] MEDS: VANCOMYCIN/WATER 1250 MG 1,250 MG/250 ML BAG IVPB SCH ×3 (09:29→21:34)
[2023-03-05] MEDS: LACTOBACILLUS ACIDOPHILUS 1 TABLET PO SCH (09:30)
[2023-03-05] MEDS ORDERED: IRON SUCROSE INJECTION 200 MG in SODIUM CHLORIDE 90 ML IVPB ONE (13:00)
[2023-03-05] MEDS: ACETAMINOPHEN 325 MG TABLET (FP) PO PRN (17:55)
[2023-03-05] MEDS: oxyCODONE HCL 5 MG TABLET PO PRN (17:55)
[2023-03-06] MEDS: PIPERACILLIN/TAZOB 3.375 GM 3.375 GM in DEXTROSE 5%-WATER - 50 ML IVPB SCH ×2 (03:08→09:33)
[2023-03-06] MEDS: HEPARIN NA (PORCINE) 5,000 UNITS/ML 1ML VIAL SQ SCH ×2 (06:46→13:30)
[2023-03-06 06:48] VITALS: BP 103/44; PULSE 62; RESP 16; TEMP 98.3
[2023-03-06] MEDS: VANCOMYCIN/WATER 1250 MG 1,250 MG/250 ML BAG IVPB SCH (09:33)
[2023-03-06] MEDS: LACTOBACILLUS ACIDOPHILUS 1 TABLET PO SCH (09:33)
[2023-03-06] MEDS ORDERED: POLYETHYLENE GLYCOL (HEALTHYLAX) 3350 17 GM PACKET PO SCH (10:00)
[2023-03-06] MEDS ORDERED: FERROUS SO4 325 MG TABLET (FP) PO SCH (12:00)
[2023-03-06] MEDS: ACETAMINOPHEN 325 MG TABLET (FP) PO PRN (12:01)
[2023-03-06] MEDS: oxyCODONE HCL 5 MG TABLET PO PRN (12:02)
== END 2023-03-06 13:37 | disposition home or self-care (01) | DRG 385 ==
LOC: FER 23:09 → FM/S 03-03 03:52
PROVIDERS: ADMIT Internal Medicine; ATTEND Family Medicine
PROC: 0H9T0ZZ Drainage of Right Breast, Open Approach (ICD-10-PCS; principal; 2023-03-03 17:00)
DX: N61.1 Abscess of the breast and nipple (principal); E66.9 Obesity, unspecified; Z68.42 Body mass index [BMI] 45.0-49.9, adult; N61.0 Mastitis without abscess
CPT/HCPCS: 36415; 80048; 80053; 82272; 82728; 83540; 83550; 83735; 84100; 85025; 85027; 85610; 85651; 85730; 86140; 87040; 87070; 87205; 94760; 99285-25; G0480; J0875; J1644; J1756

== ENCOUNTER 2024-04-02 20:31 | Emergency (ER) | payer OTHER ==
[2024-04-02 20:36] VITALS: BP 129/68; PULSE 104; RESP 20; TEMP 99.4; BMI 43.8
[2024-04-02] MEDS ORDERED: DIPHTH,PERTUSS(ACELL),TET 0.5 ML DISP.SYRIN IM ONE (21:47)
[2024-04-02] MEDS: DIPHTH,PERTUSS(ACELL),TET 0.5 ML DISP.SYRIN IM ONE (21:51)
== END 2024-04-02 21:55 | disposition home or self-care (01) ==
LOC: JERFT 20:31
PROC: 0XQKXZZ Repair Left Hand, External Approach (ICD-10-PCS; principal; 2024-04-02)
PROC: 3E0234Z Introduction of Serum, Toxoid and Vaccine into Muscle, Percutaneous Approach (ICD-10-PCS; 2024-04-02)
DX: S61.217A Laceration without foreign body of left little finger without damage to nail, initial encounter (principal); W26.0XXA Contact with knife, initial encounter
CPT/HCPCS: 12001-25; 90471; 90715; 99284-25

== ENCOUNTER 2024-10-22 14:16 | Emergency (ER) | payer OTHER ==
[2024-10-22 14:37] VITALS: BP 124/67; PULSE 75; RESP 18; TEMP 98.6; BMI 42.3
[2024-10-22] MEDS ORDERED: LIDOCAINE HCL 2% (20ML MULTI-DOSE VIAL) ONE (14:39)
[2024-10-22] MEDS: LIDOCAINE HCL 2% (50ML VIAL) SQ ONE (14:40)
== END 2024-10-22 15:48 | disposition home or self-care (01) ==
LOC: FER 14:16
PROC: 0X943ZZ Drainage of Right Axilla, Percutaneous Approach (ICD-10-PCS; principal; 2024-10-22)
DX: L73.2 Hidradenitis suppurativa (principal)
CPT/HCPCS: 10060; 99283-25